=== PATIENT | male | born 1960 | race Caucasian/White ===

== ENCOUNTER 2020-02-26 12:44 | Emergency (ER) | payer BC ==
[~2020-02-26] VITALS: Ht 180.3 cm; Wt 117.9 kg
[2020-02-26 13:40] VITALS: BP 131/70
== END 2020-02-26 13:40 | disposition home or self-care (01) ==
LOC: M.ERS 12:44
DX: T17.228A Food in pharynx causing other injury, initial encounter (principal); X58.XXXA Exposure to other specified factors, initial encounter; Y93.89 Activity, other specified; Y92.69 Other specified industrial and construction area as the place of occurrence of the external cause; Y99.9 Unspecified external cause status